=== PATIENT | male | born 1980 | race Caucasian/White ===

== ENCOUNTER 2019-05-27 10:37 | Emergency (ER) | payer OTHER, SELFPAY ==
[2019-05-27 10:39] VITALS: BP 133/73; PULSE 103; RESP 24; TEMP 36.6; O2SAT 97; BMI 30.5
--- NOTE | 2019-05-27 11:26 | EKG12_ITS ---
Test Reason : CP Blood Pressure : / mmHG Vent. Rate : 095 BPM Atrial Rate : 095 BPM P-R Int : 132 ms QRS Dur : 086 ms QT Int : 330 ms P-R-T Axes : 032 061 020 degrees QTc Int : 414 ms Normal sinus rhythm Possible Inferior infarct , age undetermined Abnormal ECG Confirmed by CHRIS FRASER, NAYE ([id number]), book editor ANNI LUCIA ([id number]) on 05/30/2019 11:30:53 AM Referred By: JONNY Confirmed By:NAYE PEREZ MD
--- NOTE | 2019-05-27 11:27 | ED.VIS.GEN ---
History of Present Illness Chief Complaint: Chest Other Informant: Patient Onset: Yesterday Narrative: Patient is a 38-year-old male with history of pneumonia presenting with cough, chest congestion and chills. Patient states he woke up this morning and was coughing a lot. He denies anything coming up. He notes that he also had chills and diarrhea. Patient states he feels that there is something in his chest and he has some back pain as well. He denies any nasal congestion or ear pain. Denies any associated sore throat. He states he had pneumonia last year and was seen at [place]. Since then he has had multiple episodes of pre-pneumonia. He is currently under evaluation by his PCP and is using an inhaler as needed. He had a spirometry test 2 weeks ago. He states he is in the process of scheduling with pulmonology for his lung complaints. Patient states he was last on a Z-Yemi about 2 months ago. He has not been on steroids since March. He denies any other complaints at this time. He denies any swelling of his legs. Denies any history of DVT or PE. Past Medical History - Allergies and Home Meds Allergies/Adverse Reactions: Allergies No Known Allergies Allergy (Verified 05/27/19 10:41) Primary Care Physician: NOT,DEFINED [NON-STAFF] - Past Medical History: - - History of pneumonia Surgical History: - - L4/L5 microdiscectomy Lives: Spouse/ Significant Other Smoking Status: Never smoker Alcohol: None Drugs: None Review of Systems General: Reports: Chills, Malaise. Denies: Fever, Sweats Eyes: Denies: Visual changes - bilaterally, Diplopia ENT: Denies: Rhinorrhea, Sore throat Cardiovascular: Reports: Chest pain - tightness . Denies: Palpitations Respiratory: Reports: Dyspnea, Cough. Denies: Dyspnea on exertion Gastrointestinal: Denies: Abdominal pain, Nausea, Vomiting, Diarrhea, Melena, Hematochezia Genitourinary: Denies: Dysuria, Hematuria, Frequency Musculoskeletal: Denies: Back pain, Extremity Pain Skin: Denies: Rash, Wounds Neurological: Denies: Headache, Weakness, Numbness Physical Exam Vital Signs/Narrative: Vital Signs Temp Pulse Resp BP Pulse Ox 05/27/19 10:39 98 F 103 H 24 H 133/73 H 97 Inital Vital Signs reviewed: Yes General: Well nourished, Well developed, No Acute Distress Head: Normocephalic, Atraumatic Eyes: Perrl, EOMI ENT: Moist mucous membranes, No rhinorrhea Neck: Supple, Nontender Cardiovascular: Regular rate, Regular rhythm, No murmurs Respiratory: No distress, CTA bilaterally, Chest nontender, Rhonchi - mild- right , - - tachypnea . Negative for: Wheezing Abdomen: Soft, Nontender, Nondistended, Normal bowel sounds Back: Nontender, Normal Inspection Extremities: Nontender, No edema Skin: Normal color, No rash Neurological: Alert, Oriented x3, Cranial nerves II-XII grossly intact, Normal Strength, Normal Sensation Psychological: Normal affect, Normal Mood Diagnostic/Tx/Re-eval Chest X-Ray - ED: 2 View, Read by ED Physician, Read by Radiologist, Right Infiltrate Clinical Impression(s) from Imaging Studies Chest X-Ray 05/27/19 11:37 IMPRESSION: Bilateral lower lung infiltrates. Electronically Signed: Juan Saravia MD at 12:08 EST , Service support , Laboratory Data 05/27/19 05/27/19 05/27/19 11:30 11:30 11:30 WBC 16.5 H RBC 4.67 Hgb 13.8 Hct 40.7 MCV 87.2 MCH 29.6 MCHC 33.9 RDW Std Deviation 38.3 RDW Coeff of Jaya 12.0 Plt Count 297 MPV 8.8 Immature Gran % (Auto) 0.500 Neut % (Auto) 84.0 H Lymph % (Auto) 7.6 L [place] % (Auto) 6.7 Eos % (Auto) 1.0 Baso % (Auto) 0.2 Absolute Neuts (auto) 13.9 H Absolute Lymphs (auto) 1.25 Nucleated RBC % 0 D-Dimer Quant (PE/DVT) 0.47 Sodium 138 Potassium 4.1 Chloride 109 H Carbon Dioxide 24.0 Anion Gap 5 BUN 15 Creatinine 1.00 Estim Creat Clear Calc 112.09 Est GFR (MDRD) Af Amer 108 Est GFR (MDRD) Non-Af 90 BUN/Creatinine Ratio 15.0 Glucose 103 Calcium 8.8 Troponin I < 0.015 Urine Color Urine Clarity Urine pH Ur Specific [place] Urine Protein Urine Glucose (UA) Urine Ketones Urine Occult Blood Urine Nitrite Urine Bilirubin Urine Urobilinogen Ur Leukocyte Esterase Urine RBC Urine WBC Ur Squamous Epith Cells Urine Bacteria Urine Mucus 05/27/19 11:51 WBC RBC Hgb Hct MCV MCH MCHC RDW Std Deviation RDW Coeff of Jaya Plt Count MPV Immature Gran % (Auto) Neut % (Auto) Lymph % (Auto) [place] % (Auto) Eos % (Auto) Baso % (Auto) Absolute Neuts (auto) Absolute Lymphs (auto) Nucleated RBC % D-Dimer Quant (PE/DVT) Sodium Potassium Chloride Carbon Dioxide Anion Gap BUN Creatinine Estim Creat Clear Calc Est GFR (MDRD) Af Amer Est GFR (MDRD) Non-Af BUN/Creatinine Ratio Glucose Calcium Troponin I Urine Color Yellow Urine Clarity Sl. Cloudy Urine pH 6.0 Ur Specific [place] 1.010 Urine Protein Negative Urine Glucose (UA) Normal Urine Ketones Negative Urine Occult Blood 10 H Urine Nitrite Negative Urine Bilirubin Negative Urine Urobilinogen Normal Ur Leukocyte Esterase Negative Urine RBC 0 SEEN Urine WBC 0 SEEN Ur Squamous Epith Cells 0-5 SEEN Urine Bacteria 0 SEEN Urine Mucus 0 SEEN - Rhythm Strip Rhythm Strip: Sinus Rhythm Rate: 95 Ectopy: None - EKG Initial EKG Interpretation: Sinus Rhythm, - - Sinus rhythm at a rate of [address] segments Nonspecific T wave inversion in lead III - Medical Decision Making Patient is evaluated for worsening cough, congestion and chills. Patient looks like he does not feel well but appears nontoxic. He is not hypoxic. Chest x-ray does show a right lower lobe infiltrate and he has no associated leukocytosis. He does not meet other criteria for sepsis however. Patient is ambulated in the ER and does not drop below 94% on room air. He is given first dose of doxycycline in the emergency room. D-dimer is checked which is negative. Do not suspect PE as the cause of his symptoms. While he says he is having chest pain it seems to be more associated with congestion and his pneumonia and I do not suspect ACS. He has an unremarkable EKG. Patient is encouraged to follow-up with a purchasing coordinator because of his recurrent pneumonia and continued respiratory issues. I did check on [facility] which showed that he had lingular left pneumonia on 05/07/2019. His right lung was clear at that time. Patient is counseled on signs and symptoms requiring return to the emergency room. Patient verbalizes agreement and understand this plan. Patient discharged home in stable and improved condition. Patient's had arrived to the ER. She was concerned about the prescription for doxycycline as he had that just before the azithromycin and felt that he did not respond to that. She is requesting a different antibiotic. While I do not believe that doxycycline would be an effective, I did switch his antibiotic to Augmentin. He did not receive doxycycline in the emergency room and instead received first dose of Augmentin in the ER. ED Disposition - Plan for ED Patient: Disposition: Home or Assisted Living Diagnosis: RLL pneumonia Instructions: PNEUMONIA (Adult) Prescriptions: Amoxicillin/Potassium Clav [Augmentin 875-125 Tablet] 1 ea PO BID #[id number] tab Prescription Printed Referrals: NOT,DEFINED [NON-STAFF] - Additional Instructions: Please follow-up with your primary care doctor later this week for reevaluation. Return the emergency room if you have worsening symptoms. Try to rest as much as you can and drink plenty of fluids. It is important that you follow-up with pulmonology because of your recurrent pneumonias.
--- NOTE | 2019-05-27 11:29 | NURSING ---
NO OLD EKGS
--- NOTE | 2019-05-27 11:37 | RAD_ITS ---
STUDY: X-RAY CHEST REASON FOR EXAM: Male, 38 years old. Pain. TECHNIQUE: PA and lateral views of the chest. COMPARISON: None. FINDINGS: There are patchy lower lung increased opacities with airspace consolidation in the right middle lobe. There is no demonstrated pleural abnormality. Normal size heart. Normal mediastinum and moshe. Normal visualized pulmonary arteries. Normal visualized aortic arch and descending thoracic aorta. Normal visualized thoracic spine. Normal visualized ribs, clavicles, and shoulders. There is no demonstrated abnormality of the visualized soft tissue structures of the upper abdomen. RAD/Chest PA and Lateral IMPRESSION: Bilateral lower lung infiltrates. Electronically Signed: Juan Saravia MD at 12:08 EST , Service support ,
[2019-05-27 11:42] LABS: Absolute Lymphocyte Count 1.25 X10^3/uL (0.83-4.51); Absolute Neutrophil Count 13.9 X10^3/uL (2.0-7.7); Basophil# 0.04 X10^3/uL; Basophil% 0.2 % (0-1); Eosinophil# 0.17 X10^3/uL; Hematocrit 40.7 % (40-54); Hemoglobin 13.8 g/dL (13.0-16.5); Lymphocyte # 1.25 X10^3/ul (4.0); Lymphocyte % 7.6 % (19-41); Mean Corp Hgb Conc 33.9 g/dL (32-36); Mean Corpuscular Hgb 29.6 pg (27.0-32.0); Mean Corpuscular Volume 87.2 fL (80-94); Mean Platelet Vol. 8.8 fl (6.2-12.0); Monocyte% 6.7 % (0-10); NRBC Flagged by Analyzer 0 % (0-5); Neutrophil # 13.89 X10^3/uL (2.7-7.7); Platelet Count 297 K/mm3 (150-450); RBC Distribution Width SD 38.3 fl (35.1-43.9); Red Blood Count 4.67 M/mm3 (4.6-6.2); White Blood Count 16.5 K/mm3 (4.4-11.0)
[2019-05-27 11:53] LABS: D-Dimer Quantitative (DVT/PE) 0.47 FEU/ug/m (0.27-0.49)
[2019-05-27 11:56] LABS: Bacteria 0 SEEN /hpf (None Seen); Mucous, Urine 0 SEEN /hpf (<or=2+); Red Blood Cells-Urine 0 SEEN /hpf (0-5); White Blood Cells 0 SEEN /hpf (0-5)
[2019-05-27] MEDS: Albuterol 2.5 MG/3 ML VIAL.NEB. INHALATION (11:56)
[2019-05-27 11:58] VITALS: PULSE 84; RESP 14
[2019-05-27 12:00] LABS: Anion Gap 5 (5-15); BUN 15 mg/dL (7-18); Calcium,Total 8.8 mg/dL (8.5-10.1); Chloride 109 mmol/L (98-107); EST Glomerular Filtration Rate 90 mL/min (>60); Est Glom Filt Rate - Afr Amer 108 mL/min (>60); Estimated Creatinine Clearance 112.09 ml/min; Glucose 103 mg/dL (74-106); Potassium 4.1 mmol/L (3.5-5.1); Sodium Level 138 mmol/L (136-145)
[2019-05-27 12:00] LABS: Color, Urine Yellow (Yellow); Glucose, Dipstick Normal (Normal); Ketone-Dipstick Negative (Negative); Leukocyte Esterase-Dipstick Negative /ul (Negative); Nitrite-Dipstick Negative (Negative); Occult Blood-Urine 10 /ul (Negative); Protein-Dipstick Negative (Negative); Urine Bilirubin Dipstick Negative (Negative); Urine Clarity Sl. Cloudy (Clear); Urine Urobilinogen Normal (Normal)
[2019-05-27 12:07] LABS: Squamous Epithelial Cells - UA 0-5 SEEN /hpf (0-5)
[2019-05-27 13:11] VITALS: BP 104/64; PULSE 85; PULSE 86; RESP 20; O2SAT 94
[2019-05-27 13:15] VITALS: O2SAT 99
[2019-05-27] MEDS: Amox/Clavulanate 875 MG Tablet PO (13:45)
== END 2019-05-27 13:47 | disposition home or self-care (01) ==
PROVIDERS: Emergency Provider Emergency Medicine
DX: J18.9 Pneumonia, unspecified organism (principal); Z87.01 Personal history of pneumonia (recurrent)
CPT/HCPCS: 71046; 80048; 81001; 84484; 85025; 85379; 87804; 93005; 94640; 99284; A4216